=== PATIENT | female | born 1970 | race Caucasian/White ===

== ENCOUNTER 2017-12-29 10:20 | Inpatient (IN) | payer MEDICARE, MEDICAID ==
[2017-12-29 11:03] LABS: BASO % 0.7 % (0.0-1.0); EOS % 0.7 % (0.0-3.0); HEMATOCRIT 31.8 % (36.0-47.0); HEMOGLOBIN 10.5 g/dl (12.0-15.5); IMMATURE GRANULOCYTE % 0.5 % (0-3.0); LYMPH # 0.9 10^3/uL (1.5-4.5); LYMPH % 21.3 % (24.0-44.0); MEAN CORPUSCULAR HEMOGLOBIN 31.8 pg (27.0-33.0); MEAN CORPUSCULAR VOLUME 96.4 fl (80.0-96.0); MONO # 0.4 10^3/uL (0.0-0.8); MONO % 8.9 % (0.0-5.0); NEUTROPHILS % 67.9 % (36.0-66.0); PLATELET COUNT, AUTOMATED 146 10^3/uL (150-450); RED CELL DISTRIBUTION WIDTH 17.1 % (11.5-14.5); WHITE BLOOD COUNT 4.4 10^3/uL (4.0-10.0)
[2017-12-29] MEDS: NS 500 ML IV (11:16)
[2017-12-29 11:26] LABS: CONTROL LINE HCG INT CTR LINE PRESENT; HCG, SERUM QUALITATIVE NEGATIVE (NEGATIVE)
[2017-12-29 11:31] LABS: AMMONIA 15 uMOL/L (<32)
[2017-12-29 11:34] LABS: LACTIC ACID SEPSIS PROTOCOL 0.7 MMOL/L (0.4-2.0)
[2017-12-29 11:36] LABS: ACETAMINOPHEN LEVEL < 2.0 UG/ML (10.0-30.0); ALBUMIN 3.8 GM/DL (3.2-5.2); ALBUMIN/GLOBULIN RATIO 0.95 (1.00-1.93); ALKALINE PHOSPHATASE 103 U/L (45-117); ALT/SGPT 20 U/L (12-78); ANION GAP 11 MEQ/L (8-16); AST/SGOT 22 U/L (7-37); BILIRUBIN,DIRECT 0.2 MG/DL (0.0-0.2); BILIRUBIN,TOTAL 0.5 MG/DL (0.2-1.0); BLOOD UREA NITROGEN 9 MG/DL (7-18); CARBON DIOXIDE LEVEL 25 MEQ/L (21-32); CHLORIDE LEVEL 103 MEQ/L (98-107); CPK CREATINE PHOSPHOKINASE 93 U/L (26-192); CREATININE FOR GFR 0.72 MG/DL (0.55-1.30); ETHYL ALCOHOL (ETHANOL) 0.006 % (0.000-0.010); GLOMERULAR FILTRATION RATE > 60.0 (>58); GLUCOSE, FASTING 90 MG/DL (70-100); POTASSIUM SERUM 3.2 MEQ/L (3.5-5.1); SALICYLATE LEVEL 4.2 MG/DL (5.0-30.0); SODIUM LEVEL 139 MEQ/L (136-145); TOTAL PROTEIN 7.8 GM/DL (6.4-8.2); TROPONIN I < 0.02 NG/ML (< 0.10)
[2017-12-29 11:42] LABS: CK-MB VALUE MASS 3.2 NG/ML (<3.6); MB/CK RELATIVE INDEX 3.44 (< OR =4)
[2017-12-29] MEDS: NS 1,000 ML IV (12:15)
[2017-12-29 12:16] LABS: KETONE, URINE AUTO RFX NEGATIVE (NEGATIVE); MUCUS, URINE RFX SMALL (NEGATIVE); RBC, URINE AUTO RFX 4 /HPF (0-3); SPECIFIC GRAVITY UR AUTO RFX 1.008 (1.002-1.035); SQUAM EPITHELIAL CELL UR AURFX 1 /HPF (0-6)
[2017-12-29 12:39] LABS: AMPHETAMINES LEVEL URINE NEGATIVE (NEGATIVE); BARBITURATES URINE NEGATIVE (NEGATIVE); BENZODIAZEPINES URINE NEGATIVE (NEGATIVE); CANNABINOIDS URINE NEGATIVE (NEGATIVE); COCAINE METABOLITE URINE NEGATIVE (NEGATIVE); METHADONE URINE NEGATIVE (NEGATIVE); OPIATES URINE POSITIVE (NEGATIVE); PHENCYCLIDINE URINE NEGATIVE (NEGATIVE)
[2017-12-29 12:52] LABS: LEUKOCYTE ESTERASE UR AUTO RFX 3+ (NEGATIVE); NITRITE, URINE AUTO RFX POSITIVE (NEGATIVE); WBC, URINE AUTO RFX 49 /HPF (0-3)
[2017-12-29] MEDS: MULTIVITAMIN -ADULT INJECTION 10 ML, THIAMINE INJection 100 MG, FOLIC ACID 1 MG in NS 1... IV (14:00)
[2017-12-29] MEDS ORDERED: OXAZEPAM 10 MG CAP PO (15:00)
[2017-12-29 15:31] LABS: FREE THYROXINE INDEX 2.9 % (1.3-4.8); MAGNESIUM LEVEL 1.6 MG/DL (1.8-2.4); T UPTAKE 39 % (30-39); THYROXINE (T4) 7.4 UG/DL (4.5-12.0)
[2017-12-29 16:09] LABS: CPK CREATINE PHOSPHOKINASE 77 U/L (26-192); TROPONIN I < 0.02 NG/ML (< 0.10)
[2017-12-29 16:10] LABS: CK-MB VALUE MASS 3.4 NG/ML (<3.6); MB/CK RELATIVE INDEX 4.41 (< OR =4)
[2017-12-29] MEDS: PANTOPRAZOLE 40MG TAB (PROTONIX) PO (16:14)
[2017-12-29] MEDS: POTASSIUM CHLORIDE 10 MEQ SR TABLET PO (16:14)
[2017-12-29] MEDS: cefTRIAXone SOD 2 GM in D5W MINI-BAG PLUS 50 ML IV (16:14)
[2017-12-29] MEDS: OXAZEPAM 10 MG CAP PO ×3 (16:23→23:21)
[2017-12-29] MEDS: SENOKOT S TAB PO (21:53)
[2017-12-29] MEDS: NORTRIPTYLINE 25 MG CAP PO (21:53)
[2017-12-29] MEDS: ENOXAPARIN 40 MG/0.4 ML SYRINGE (J1650) SC (21:53)
[2017-12-29] MEDS: MAG SULF 1GM/100ML (MAG RUN) 1 GM in APPROPRIATE DILUENT 1 EA IV (21:56)
[2017-12-29] MEDS: NICOTINE 21MG/24HR 1 EA TRANSDERMAL TD (21:56)
[2017-12-30] MEDS: LORazepam 2 MG/ML VIAL (J2060) IV ×6 (05:34→19:56)
[2017-12-30] MEDS: OXAZEPAM 10 MG CAP PO ×3 (05:35→17:23)
[2017-12-30 06:53] LABS: HEMATOCRIT 31.1 % (36.0-47.0); HEMOGLOBIN 10.2 g/dl (12.0-15.5); MEAN CORPUSCULAR HEMOGLOBIN 32.1 pg (27.0-33.0); MEAN CORPUSCULAR HGB CONC 32.8 g/dl (32.0-36.5); MEAN CORPUSCULAR VOLUME 97.8 fl (80.0-96.0); PLATELET COUNT, AUTOMATED 140 10^3/uL (150-450); RED BLOOD COUNT 3.18 10^6/uL (4.00-5.40); RED CELL DISTRIBUTION WIDTH 16.9 % (11.5-14.5); WHITE BLOOD COUNT 5.5 10^3/uL (4.0-10.0)
[2017-12-30 07:23] LABS: ANION GAP 7 MEQ/L (8-16); BLOOD UREA NITROGEN 4 MG/DL (7-18); CALCIUM LEVEL 8.7 MG/DL (8.5-10.1); CARBON DIOXIDE LEVEL 28 MEQ/L (21-32); CHLORIDE LEVEL 104 MEQ/L (98-107); CREATININE FOR GFR 0.55 MG/DL (0.55-1.30); GLOMERULAR FILTRATION RATE > 60.0 (>58); GLUCOSE, FASTING 78 MG/DL (70-100); MAGNESIUM LEVEL 1.8 MG/DL (1.8-2.4); POTASSIUM SERUM 3.3 MEQ/L (3.5-5.1); SODIUM LEVEL 139 MEQ/L (136-145)
[2017-12-30 07:39] LABS: INR 0.89; PROTHROMBIN TIME 12.2 SECONDS (12.1-14.4)
[2017-12-30] MEDS: THIAMINE 100 MG TAB PO (08:43)
[2017-12-30] MEDS: buPROPion **XL** TABLET 150MG (WELLBUTRIN XL) PO (08:43)
[2017-12-30] MEDS: SENOKOT S TAB PO ×2 (08:43→20:42)
[2017-12-30] MEDS: PANTOPRAZOLE 40MG TAB (PROTONIX) PO (08:44)
[2017-12-30] MEDS: MULTIVITAMINS/MINERALS THERAP 1 TAB PO (08:44)
[2017-12-30] MEDS: LISINOPRIL *2.5 MG* TAB PO (08:44)
[2017-12-30] MEDS: FOLIC ACID 1 MG TAB PO (08:44)
[2017-12-30] MEDS: POTASSIUM CHLORIDE 10 MEQ SR TABLET PO (10:02)
[2017-12-30] MEDS: MAG SULF 1GM/100ML (MAG RUN) 1 GM in APPROPRIATE DILUENT 1 EA IV (10:02)
[2017-12-30] MEDS: cefTRIAXone SOD 2 GM in D5W MINI-BAG PLUS 50 ML IV (16:12)
[2017-12-30] MEDS: diphenhydrAMINE INJ 50MG/ML VIAL (J1200) IV (18:30)
[2017-12-30] MEDS: cloNIDine 0.1 MG TAB PO (18:33)
[2017-12-30] MEDS: NORTRIPTYLINE 25 MG CAP PO (20:42)
[2017-12-30] MEDS: ENOXAPARIN 40 MG/0.4 ML SYRINGE (J1650) SC (20:42)
[2017-12-30] MEDS: NICOTINE 21MG/24HR 1 EA TRANSDERMAL TD (20:53)
[2017-12-31] MEDS: OXAZEPAM 10 MG CAP PO ×6 (01:21→23:50)
[2017-12-31 05:09] LABS: HEMATOCRIT 33.9 % (36.0-47.0); MEAN CORPUSCULAR HEMOGLOBIN 31.8 pg (27.0-33.0); MEAN CORPUSCULAR HGB CONC 32.4 g/dl (32.0-36.5); PLATELET COUNT, AUTOMATED 156 10^3/uL (150-450); RED BLOOD COUNT 3.46 10^6/uL (4.00-5.40); RED CELL DISTRIBUTION WIDTH 17.3 % (11.5-14.5); WHITE BLOOD COUNT 4.3 10^3/uL (4.0-10.0)
[2017-12-31 05:19] LABS: ANION GAP 7 MEQ/L (8-16); BLOOD UREA NITROGEN 4 MG/DL (7-18); CALCIUM LEVEL 8.8 MG/DL (8.5-10.1); CARBON DIOXIDE LEVEL 27 MEQ/L (21-32); CHLORIDE LEVEL 105 MEQ/L (98-107); CREATININE FOR GFR 0.53 MG/DL (0.55-1.30); GLOMERULAR FILTRATION RATE > 60.0 (>58); GLUCOSE, FASTING 89 MG/DL (70-100); MAGNESIUM LEVEL 1.8 MG/DL (1.8-2.4); POTASSIUM SERUM 4.1 MEQ/L (3.5-5.1); SODIUM LEVEL 139 MEQ/L (136-145)
[2017-12-31] MEDS: SENOKOT S TAB PO ×2 (08:26→20:13)
[2017-12-31] MEDS: FOLIC ACID 1 MG TAB PO (08:26)
[2017-12-31] MEDS: THIAMINE 100 MG TAB PO (08:26)
[2017-12-31] MEDS: LISINOPRIL *2.5 MG* TAB PO (08:27)
[2017-12-31] MEDS: MULTIVITAMINS/MINERALS THERAP 1 TAB PO (08:27)
[2017-12-31] MEDS: PANTOPRAZOLE 40MG TAB (PROTONIX) PO (08:27)
[2017-12-31] MEDS: buPROPion **XL** TABLET 150MG (WELLBUTRIN XL) PO (08:27)
[2017-12-31] MEDS: ACETAMINOPHEN TAB 650MG DOSE (2X325MG) PO ×3 (08:28→22:07)
[2017-12-31] MEDS: LORazepam 2 MG/ML VIAL (J2060) IV ×3 (11:37→22:06)
[2017-12-31] MEDS ORDERED: SLF 3 ML SYR IV (12:30)
[2017-12-31] MEDS: SLF 3 ML SYR IV ×2 (14:36→20:14)
[2017-12-31] MEDS: cefTRIAXone SOD 2 GM in D5W MINI-BAG PLUS 50 ML IV (16:32)
[2017-12-31] MEDS: CYCLOBENZAPRINE 10 MG TAB PO (18:02)
[2017-12-31] MEDS: ONDANSETRON 4MG/2ML VIAL (J2405) IV (20:13)
[2017-12-31] MEDS: NORTRIPTYLINE 25 MG CAP PO (20:13)
[2017-12-31] MEDS: ENOXAPARIN 40 MG/0.4 ML SYRINGE (J1650) SC (20:13)
[2017-12-31] MEDS: NICOTINE 21MG/24HR 1 EA TRANSDERMAL TD (20:13)
[2018-01-01] MEDS: ACETAMINOPHEN TAB 650MG DOSE (2X325MG) PO ×2 (04:10→13:55)
[2018-01-01] MEDS: CYCLOBENZAPRINE 10 MG TAB PO ×2 (04:10→13:55)
[2018-01-01] MEDS: OXAZEPAM 10 MG CAP PO ×4 (05:21→23:49)
[2018-01-01] MEDS: SLF 3 ML SYR IV ×3 (05:22→20:12)
[2018-01-01 05:57] LABS: HEMATOCRIT 31.8 % (36.0-47.0); HEMOGLOBIN 10.2 g/dl (12.0-15.5); MEAN CORPUSCULAR HEMOGLOBIN 32.3 pg (27.0-33.0); MEAN CORPUSCULAR HGB CONC 32.1 g/dl (32.0-36.5); MEAN CORPUSCULAR VOLUME 100.6 fl (80.0-96.0); PLATELET COUNT, AUTOMATED 164 10^3/uL (150-450); RED BLOOD COUNT 3.16 10^6/uL (4.00-5.40); RED CELL DISTRIBUTION WIDTH 17.4 % (11.5-14.5); WHITE BLOOD COUNT 4.7 10^3/uL (4.0-10.0)
[2018-01-01 06:13] LABS: ANION GAP 10 MEQ/L (8-16); BLOOD UREA NITROGEN 8 MG/DL (7-18); CALCIUM LEVEL 8.2 MG/DL (8.5-10.1); CARBON DIOXIDE LEVEL 23 MEQ/L (21-32); CHLORIDE LEVEL 109 MEQ/L (98-107); CREATININE FOR GFR 0.69 MG/DL (0.55-1.30); GLOMERULAR FILTRATION RATE > 60.0 (>58); GLUCOSE, FASTING 76 MG/DL (70-100); MAGNESIUM LEVEL 1.6 MG/DL (1.8-2.4); SODIUM LEVEL 142 MEQ/L (136-145)
[2018-01-01] MEDS: LORazepam 2 MG/ML VIAL (J2060) IV ×3 (06:31→16:27)
[2018-01-01] MEDS: SENOKOT S TAB PO ×2 (08:13→20:09)
[2018-01-01] MEDS: PANTOPRAZOLE 40MG TAB (PROTONIX) PO (08:13)
[2018-01-01] MEDS: MULTIVITAMINS/MINERALS THERAP 1 TAB PO (08:13)
[2018-01-01] MEDS: THIAMINE 100 MG TAB PO (08:13)
[2018-01-01] MEDS: MAGNESIUM OXIDE 400 MG TAB (MAG-OX) PO (08:13)
[2018-01-01] MEDS: buPROPion **XL** TABLET 150MG (WELLBUTRIN XL) PO (08:14)
[2018-01-01] MEDS: LISINOPRIL *2.5 MG* TAB PO (08:14)
[2018-01-01] MEDS: FOLIC ACID 1 MG TAB PO (08:14)
[2018-01-01] MEDS: ONDANSETRON 4MG/2ML VIAL (J2405) IV (12:13)
[2018-01-01] MEDS: GABAPENTIN 100 MG CAP PO ×2 (16:28→20:10)
[2018-01-01] MEDS: NORTRIPTYLINE 25 MG CAP PO (20:10)
[2018-01-01] MEDS: ENOXAPARIN 40 MG/0.4 ML SYRINGE (J1650) SC (20:11)
[2018-01-01] MEDS: NICOTINE 21MG/24HR 1 EA TRANSDERMAL TD (20:12)
[2018-01-02] MEDS: ACETAMINOPHEN TAB 650MG DOSE (2X325MG) PO ×2 (00:33→04:50)
[2018-01-02] MEDS: CYCLOBENZAPRINE 10 MG TAB PO (04:47)
[2018-01-02 05:44] LABS: HEMATOCRIT 30.9 % (36.0-47.0); MEAN CORPUSCULAR HEMOGLOBIN 31.8 pg (27.0-33.0); MEAN CORPUSCULAR HGB CONC 32.4 g/dl (32.0-36.5); MEAN CORPUSCULAR VOLUME 98.4 fl (80.0-96.0); PLATELET COUNT, AUTOMATED 186 10^3/uL (150-450); RED BLOOD COUNT 3.14 10^6/uL (4.00-5.40); RED CELL DISTRIBUTION WIDTH 16.8 % (11.5-14.5); WHITE BLOOD COUNT 4.7 10^3/uL (4.0-10.0)
[2018-01-02] MEDS: ONDANSETRON 4MG/2ML VIAL (J2405) IV (05:50)
[2018-01-02] MEDS: SLF 3 ML SYR IV (05:51)
[2018-01-02] MEDS: OXAZEPAM 10 MG CAP PO (05:51)
[2018-01-02 05:59] LABS: ANION GAP 9 MEQ/L (8-16); BLOOD UREA NITROGEN 10 MG/DL (7-18); CALCIUM LEVEL 8.5 MG/DL (8.5-10.1); CARBON DIOXIDE LEVEL 25 MEQ/L (21-32); CHLORIDE LEVEL 108 MEQ/L (98-107); GLOMERULAR FILTRATION RATE > 60.0 (>58); GLUCOSE, FASTING 84 MG/DL (70-100); MAGNESIUM LEVEL 1.8 MG/DL (1.8-2.4); POTASSIUM SERUM 4.4 MEQ/L (3.5-5.1); SODIUM LEVEL 142 MEQ/L (136-145)
[2018-01-02] MEDS: LORazepam 2 MG/ML VIAL (J2060) IV (06:40)
[2018-01-02] MEDS: MAGNESIUM OXIDE 400 MG TAB (MAG-OX) PO (08:32)
[2018-01-02] MEDS: PANTOPRAZOLE 40MG TAB (PROTONIX) PO (08:32)
[2018-01-02] MEDS: SENOKOT S TAB PO (08:32)
[2018-01-02] MEDS: LISINOPRIL *2.5 MG* TAB PO (08:32)
[2018-01-02] MEDS: FOLIC ACID 1 MG TAB PO (08:33)
[2018-01-02] MEDS: MULTIVITAMINS/MINERALS THERAP 1 TAB PO (08:33)
[2018-01-02] MEDS: GABAPENTIN 100 MG CAP PO (08:33)
[2018-01-02] MEDS: buPROPion **XL** TABLET 150MG (WELLBUTRIN XL) PO (08:33)
[2018-01-02] MEDS: THIAMINE 100 MG TAB PO (08:36)
[2018-01-02] MEDS ORDERED: GABAPENTIN 400 MG CAP PO (16:00)
== END 2018-01-02 11:20 | disposition home or self-care (01) | DRG 896 ==
LOC: M PCU 12-30 10:43 → M ED 10:20 → M ED INP 15:13
PROVIDERS: Hospitalist
DX: F10.231 Alcohol dependence with withdrawal delirium (principal); G93.41 Metabolic encephalopathy; N39.0 Urinary tract infection, site not specified; B96.20 Unspecified Escherichia coli [E. coli] as the cause of diseases classified elsewhere; F32.9 Major depressive disorder, single episode, unspecified; G62.9 Polyneuropathy, unspecified; E83.42 Hypomagnesemia; R44.1 Visual hallucinations; R26.81 Unsteadiness on feet; I10 Essential (primary) hypertension; F17.210 Nicotine dependence, cigarettes, uncomplicated; Z91.013 Allergy to seafood; Z79.899 Other long term (current) drug therapy; Z90.49 Acquired absence of other specified parts of digestive tract